=== PATIENT | male | born 1960 | race Caucasian/White ===

== ENCOUNTER 2020-02-09 10:46 | Emergency (ER) | payer OTHER ==
[~2020-02-09] VITALS: Ht 177.8 cm; Wt 77.1 kg
[~2020-02-09 10:46] MED LIST: CIPROFLOXACIN500 M1 PO; DIOVAN40 MG PO; STATIN
[2020-02-09] MEDS ORDERED: CEFDINIR300 MG PO (10:56)
[2020-02-09] MEDS ORDERED: MEDROL DOSPAK21 TA1 PO (10:56)
[2020-02-09 11:09] LABS: ABSOLUTE BASOPHILS 0.1 thou/uL (0.0-0.2); ABSOLUTE LYMPHOCYTES 2.2 thou/uL (0.8-5.3); ABSOLUTE MONOCYTES 1.1 thou/uL (0.0-1.2); BASOPHILS 0.6 %; EOSINOPHILS 0.2 %; HEMATOCRIT 46.9 % (42.0-52.0); HEMOGLOBIN 16.4 gm/dL (14.0-18.0); LYMPHOCYTES 15.2 %; MCH 32.6 pg (26.0-34.0); MCHC 35.1 g/dL (28.0-37.0); MCV 92.8 fL (80.0-100.0); MONOCYTES 7.6 %; MPV 8.6 fl. (7.2-11.1); NUCLEATED RBCS 0 /100WBC; PLATELET COUNT* 314 thou/uL (150-400); POLYS 76.4 %; RBC 5.05 mil/uL (4.50-6.00); RDW-CV 12.9 % (10.5-14.5); WBC 14.4 thou/uL (4.0-11.0)
[2020-02-09 11:13] LABS: CREATININE 1.1 mg/dL (0.6-1.3); POTASSIUM 4.2 mmol/L (3.5-5.1)
[2020-02-09 11:17] LABS: ALBUMIN 3.8 g/dL (3.4-5.0); TOTAL BILIRUBIN 0.7 mg/dL (<0.1-1.0); TOTAL PROTEIN 8.6 g/dL (6.4-8.2)
[2020-02-09 13:04] VITALS: BP 162/99
--- NOTE | 2020-02-11 14:30 | EKG ---
[place] [address] ELECTROCARDIOGRAM REPORT Name: DIVINA RIZO Room: [facility]#: [id number] Admission: 02/09/20 Attend Phys: Discharge: 02/09/20 Date of : 56 Date of Service: 02/09/20 1059 Report #: [id number] THIS REPORT FOR: //name// [facility] ED Test Date: 2020-02-09 Test Time: 10:59:28 Pat Name: DIVINA RIZO Department: Room: Gender: Drug Safety Specialist: : [id number] Requested By: Pola Dean Order Number: [id number] Jessica MD: Ernesto Franks Measurements Intervals [place] Rate: 59 P: 64 [place]: 162 QRS: 34 QRSD: 99 T: 49 QT: 421 QTc: 417 Interpretive Statements Sinus rhythm No previous ECG available for comparison Electronically Signed On 02-11-2020 14:28:05 CDT by Ernesto Franks [email or web address] <ELECTRONICALLY SIGNED> By: Ernesto Franks MD, [facility] 02/11/20 1428 1059 1059 Ernesto Franks MD, FACC /EPI
== END 2020-02-09 13:05 | disposition home or self-care (01) ==
LOC: M.ERS 10:46
PROVIDERS: Emergency Medicine Emergency Medical Services
DX: I10 Essential (primary) hypertension (principal); R51 Headache